=== PATIENT | male | born 1995 | race Caucasian/White ===

== ENCOUNTER 2017-09-24 16:24 | Emergency (ER) | payer OTHER ==
--- NOTE | 2017-09-24 17:02 | ULT ---
EXAM: SOFT TISSUE ULTRASOUND: HISTORY: Pulsating mass in the right wrist. The patient has a recent lab draw from that wrist. Evaluate for aneurysm. COMPARISON: None. TECHNIQUE: Yanez scale, color flow, Doppler imaging, with spectral waveform analysis was performed of the right w rist. FINDINGS: There is a well-circumscribed hypoechoic mass with vascular flow measuring 1.2 x 1.0 x 1.3 cm. A pse udoaneurysm is favored. IMPRESSION: Pseudoaneurysm, corresponding to pulsating mass in the right wrist. POS: [facility]
[2017-09-24 19:17] LABS: #Basophils 0.1 thou/uL (0.0-0.2); #Eosinphils 0.4 thou/uL (0.0-0.7); #Lymphocytes 1.9 thou/uL (1.20-3.40); #Monocytes 0.8 thou/uL (0.11-0.59); #Neutrophils 7.2 thou/uL (1.40-6.50); %Basophils 1.4 % (0.0-1.0); %Eosinophils 4.3 % (0.0-10.0); %Monocytes 7.9 % (0.0-10.0); %Neutrophils 68.4 % (42.0-75.0); Hemoglobin 11.4 g/dL (14.0-18.0); Mean Corpuscular HGB CONC 34.1 g/dL (32.0-36.0); Mean Corpuscular Hemoglobin 30.5 pg (27.0-31.0); Mean Corpuscular Volume 89.5 fl (80.0-94.0); Mean Platelet Volume 10.6 fL (7.4-10.4); Platelet Count 426 thou/uL (130-400); RBC Distribution Width 15.3 % (11.5-14.5); Red Blood Cell (RBC) Count 3.74 mill/uL (4.70-6.10); White Blood Cell (WBC) Count 10.5 thou/uL (4.8-10.8)
[2017-09-24 19:21] LABS: PTT 39.7 SEC (22.9-36.1); Prothrombin Time 13.3 SEC (12.0-14.7)
[2017-09-24 19:28] LABS: Anion Gap 13 mmol/L (10-20); BUN (Urea Nitrogen) 10 mg/dL (8.9-20.6); Calc. Creatinine Clearance 0 mL/min (70-130); Calcium 9.6 mg/dL (7.8-10.44); Carbon Dioxide 24 mmol/L (22-29); Chloride 93 mmol/L (98-107); Estimated GFR-MDRD Greater than 90; Glucose 78 mg/dL (70-105); Potassium 3.4 mmol/L (3.5-5.1); Sodium 127 mmol/L (136-145)
--- NOTE | 2017-09-25 05:53 | CON ---
DATE OF CONSULTATION: 09/24/2017 HISTORY OF PRESENT ILLNESS: This is a 22-year-old gentleman with primary sclerosing cholangitis, who has just recently completed a course of 6 weeks of IV antibiotics. He is on the transplant list at the present time. 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 PAST MEDICAL HISTORY: Also includes ulcerative colitis. PAST SURGICAL HISTORY: Includes appendectomy at age 5 and partial colectomy at age 7. He has had so me liver biopsies in the past. MEDICATIONS: At the present time include, medication for his primary sclerosing cholangitis, I do no t have the name of that medication. ALLERGIES: He has no known allergies. SOCIAL HISTORY: He is a mechanical engineering student karmen at and accompanied by his mother mukul ivey lives in [place]. PHYSICAL EXAMINATION: GENERAL: He is an alert, cooperative gentleman, in no distress. Facies has slight jaundice. NECK: Without adenopathy or bruits. LUNGS: Clear to auscultation. CARDIAC: Regular rate and rhythm, no murmurs. ABDOMEN: Firm, nontender, palpable right upper quadrant liver. EXTREMITIES: Palpable femoral and pedal pulses bilaterally. 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 He has excellent Kei's with good collateral fi ll with compression of his radial artery, both in his index finger with plethysmography and in his pa lmar arch with Doppler. PLAN: Plan at this time is for exploration tomorrow under local anesthetic with either ligation of h is radial artery at the site of injury or repair if the entry site is not too large. I discussed thi s with the patient and his mother and informed consent has been obtained.
== END 2017-09-24 18:56 | disposition home or self-care (01) ==
LOC: ERS 16:24
DX: I72.1 Aneurysm of artery of upper extremity (principal); Z79.899 Other long term (current) drug therapy
CPT/HCPCS: 76999; 80048; 85025; 85610; 85730; 86850; 86900; 86901

== ENCOUNTER 2017-09-25 11:10 | Day surgery (SDC) | payer OTHER ==
[2017-09-25] MEDS ORDERED: Propofol 200 MG/20 ML VIAL ONE (12:08)
[2017-09-25] MEDS ORDERED: Lidocaine 1% PF 5 ML VIAL ONE (12:08)
[2017-09-25] MEDS ORDERED: Ondansetron HCl/PF 4 MG/2 ML Vial ONE (12:08)
[2017-09-25] MEDS ORDERED: Dexamethasone 20 MG/5 ML VIAL ONE (12:08)
[2017-09-25] MEDS ORDERED: Fentanyl 100 MCG/2 ML VIAL ONE (12:18)
[2017-09-25] MEDS ORDERED: Midazolam HCl 2 mg/2 ml Vial ONE (12:18)
[2017-09-25] MEDS ORDERED: Lidocaine 1% w/Epinephrine 1:200K 30 ML VIAL ONE (12:44)
--- NOTE | 2017-09-26 11:13 | OP ---
PREOPERATIVE DIAGNOSIS: Right radial artery pseudoaneurysm. PROCEDURE: Repair right radial artery pseudoaneurysm. SURGEON: Dr. Sylvester Guthrie. ANESTHESIA: General with 1% lidocaine. PROCEDURE: After adequate anesthesia had been obtained, the right lower arm was prepped and draped. A 1% lidocaine was used to inflate and injected around the pseudoaneurysm. Incision was made over t he pseudoaneurysm slightly proximally and less so distally. Dissection was carried out proximally an d after control of the radial artery with a small bulldog clamp, the aneurysm was opened with zack armond of the distal radial artery manually. The orifice of the pseudoaneurysm was then oversewn with 6-0 Prolene suture. Following this, clamp and pressure was released and there was no further bleedin g. The pseudoaneurysm sac was partially excised, and the wound was then closed in layers. The patie nt tolerated the procedure well with minimal blood loss.
== END 2017-09-25 14:55 | disposition home or self-care (01) ==
LOC: SDC 11:10
PROVIDERS: ATTEND Thoracic Surgery (Cardiothoracic Vascular Surgery)
PROC: 03QB0ZZ Repair Right Radial Artery, Open Approach (ICD-10-PCS; principal; 2017-09-25)
DX: I72.1 Aneurysm of artery of upper extremity (principal); K83.0 Cholangitis; K51.90 Ulcerative colitis, unspecified, without complications; Z76.82 Awaiting organ transplant status; Z90.49 Acquired absence of other specified parts of digestive tract; Z98.890 Other specified postprocedural states
CPT/HCPCS: 36416; J1100; J2001; J2250; J2405; J2704; J3010

== ENCOUNTER 2017-09-29 15:00 | Emergency (ER) | payer OTHER ==
[2017-09-29 15:45] LABS: #Basophils 0.1 thou/uL (0.0-0.2); #Eosinphils 0.2 thou/uL (0.0-0.7); #Lymphocytes 0.8 thou/uL (1.20-3.40); #Monocytes 0.8 thou/uL (0.11-0.59); #Neutrophils 7.2 thou/uL (1.40-6.50); %Basophils 0.7 % (0.0-1.0); %Eosinophils 2.2 % (0.0-10.0); %Lymphocytes 8.8 % (21.0-51.0); %Monocytes 9.1 % (0.0-10.0); %Neutrophils 79.2 % (42.0-75.0); Hemoglobin 11.3 g/dL (14.0-18.0); Mean Corpuscular HGB CONC 34.6 g/dL (32.0-36.0); Mean Corpuscular Hemoglobin 30.9 pg (27.0-31.0); Mean Corpuscular Volume 89.4 fl (80.0-94.0); Mean Platelet Volume 9.6 fL (7.4-10.4); Platelet Count 331 thou/uL (130-400); Red Blood Cell (RBC) Count 3.67 mill/uL (4.70-6.10); White Blood Cell (WBC) Count 9.1 thou/uL (4.8-10.8)
[2017-09-29 16:10] LABS: ALT (SGPT) 160 U/L (8-55); AST (SGOT) 138 U/L (5-34); Albumin 3.2 g/dL (3.5-5.0); Alkaline Phosphatase 1045 U/L (40-150); Anion Gap 12 mmol/L (10-20); BUN (Urea Nitrogen) 9 mg/dL (8.9-20.6); Bilirubin, Total 11.1 mg/dL (0.2-1.2); Calc. Creatinine Clearance 0 mL/min (70-130); Calcium 9.2 mg/dL (7.8-10.44); Carbon Dioxide 23 mmol/L (22-29); Chloride 94 mmol/L (98-107); Estimated GFR-MDRD Greater than 90; Globulin 3.2 g/dL (2.4-3.5); Glucose 188 mg/dL (70-105); Lipase Less than 4 U/L (8-78); Potassium 3.2 mmol/L (3.5-5.1); Protein, Total 6.4 g/dL (6.0-8.3); Sodium 126 mmol/L (136-145)
--- NOTE | 2017-09-29 16:27 | RAD ---
PORTABLE CHEST ONE VIEW: Date: 09-29-17 Time: 4:19 p.m. History: Cough. FINDINGS: The heart size is normal. The lungs are well expanded without confluent areas of consolidation, pneum othoraces, or pleural effusions. IMPRESSION: No radiographic evidence of acute cardiopulmonary process. POS: [facility]
[2017-09-29 16:51] LABS: Bilirubin Large (Negative); Blood, Urine Negative (Negative); Clarity CLOUDY (Clear); Glucose, Urine (Dipstick) 100 mg/dL (Negative); Leukocyte Small (Negative); Nitrite Negative (Negative); Protein, Urine (Dipstick) Negative (Neg-Trace); Specific Gravity, Urine 1.027 (1.002-1.036)
[2017-09-29 16:54] LABS: Bacteria/HPF None Seen HPF (None Seen); Hyaline Casts/LPF 0-3 HYALINE CAST LPF (0-3 Hyaline); Pathc Cast-AUWi Flag 0.27 (0-2.49); Squamous Epithelial None Seen HPF (0-3)
[2017-09-29 17:05] LABS: WBC/HPF 0-3 HPF (0-3)
[2017-09-29] MEDS ORDERED: Potassium Chloride 20 MEQ TAB ONE (17:19)
== END 2017-09-29 18:50 | disposition home or self-care (01) ==
LOC: ERS 15:00
DX: J11.1 Influenza due to unidentified influenza virus with other respiratory manifestations (principal); Z79.899 Other long term (current) drug therapy
CPT/HCPCS: 36415; 71045; 80053; 81003; 81015; 83690; 85025; 87804; 96360

== ENCOUNTER 2018-04-30 20:42 | Inpatient (IN) | payer OTHER ==
--- NOTE | 2018-04-30 21:29 | RAD ---
SINGLE VIEW OF THE CHEST: 04/29/18 COMPARISON: 09/29/17 HISTORY: Fever and cough. FINDINGS: Single view of the chest shows a normal sized cardiomediastinal silhouette. There is no evidence of c onsolidation, mass, or pleural effusion. The bones are unremarkable. IMPRESSION: No evidence of acute cardiopulmonary disease. POS: [facility]
[2018-04-30] MEDS ORDERED: Cefepime 2 GM in Sodium Chloride 0.9% 100 ML IVPB SCH (21:30)
[2018-04-30 21:32] LABS: #Basophils 0.1 thou/uL (0.0-0.2); #Eosinphils 0.1 thou/uL (0.0-0.7); #Monocytes 1.1 thou/uL (0.11-0.59); #Neutrophils 16.2 thou/uL (1.40-6.50); %Basophils 0.5 % (0.0-1.0); %Eosinophils 0.7 % (0.0-10.0); %Lymphocytes 10.4 % (21.0-51.0); %Monocytes 5.6 % (0.0-10.0); %Neutrophils 82.7 % (42.0-75.0); Mean Corpuscular HGB CONC 34.3 g/dL (32.0-36.0); Mean Corpuscular Hemoglobin 30.9 pg (27.0-31.0); Platelet Count 348 thou/uL (130-400); RBC Distribution Width 17.4 % (11.5-14.5); Red Blood Cell (RBC) Count 3.89 mill/uL (4.70-6.10); White Blood Cell (WBC) Count 19.5 thou/uL (4.8-10.8)
[2018-04-30 21:43] LABS: ALT (SGPT) 104 U/L (8-55); AST (SGOT) 124 U/L (5-34); Albumin 3.7 g/dL (3.5-5.0); Alkaline Phosphatase 1040 U/L (40-150); Anion Gap 14 mmol/L (10-20); BUN (Urea Nitrogen) 9 mg/dL (8.9-20.6); Bilirubin, Total 10.7 mg/dL (0.2-1.2); Calc. Creatinine Clearance 0 mL/min (70-130); Calcium 9.6 mg/dL (7.8-10.44); Carbon Dioxide 24 mmol/L (22-29); Chloride 95 mmol/L (98-107); Estimated GFR-MDRD Greater than 90; Globulin 4.3 g/dL (2.4-3.5); Glucose 93 mg/dL (70-105); Lipase Less than 4 U/L (8-78); Potassium 3.4 mmol/L (3.5-5.1); Sodium 130 mmol/L (136-145)
[2018-04-30] MEDS ORDERED: Ibuprofen 800 MG TAB ONE (23:08)
[2018-04-30 23:57] VITALS: BMI 24.0
[2018-05-01] MEDS ORDERED: Acetaminophen 325 MG TAB PO PRN (00:07)
[2018-05-01] MEDS ORDERED: Ondansetron HCl/PF 4 MG/2 ML Vial IVP PRN (00:07)
[2018-05-01] MEDS: Sodium Chloride 0.9% 1,000 ML IV SCH ×2 (00:14→08:02)
[2018-05-01 04:29] LABS: #Basophils 0.1 thou/uL (0.0-0.2); #Eosinphils 0.2 thou/uL (0.0-0.7); #Lymphocytes 2.6 thou/uL (1.20-3.40); #Monocytes 1.1 thou/uL (0.11-0.59); #Neutrophils 14.8 thou/uL (1.40-6.50); %Basophils 0.5 % (0.0-1.0); %Eosinophils 1.1 % (0.0-10.0); %Lymphocytes 13.7 % (21.0-51.0); %Monocytes 5.7 % (0.0-10.0); Anion Gap 13 mmol/L (10-20); BUN (Urea Nitrogen) 7 mg/dL (8.9-20.6); Calc. Creatinine Clearance 187 mL/min (70-130); Calcium 9.1 mg/dL (7.8-10.44); Carbon Dioxide 24 mmol/L (22-29); Chloride 102 mmol/L (98-107); Estimated GFR-MDRD Greater than 90; Glucose 103 mg/dL (70-105); Hemoglobin 11.9 g/dL (14.0-18.0); Mean Corpuscular HGB CONC 33.8 g/dL (32.0-36.0); Mean Corpuscular Hemoglobin 30.8 pg (27.0-31.0); Mean Corpuscular Volume 91.1 fL (78.0-98.0); Mean Platelet Volume 11.5 fL (7.4-10.4); Platelet Count 332 thou/uL (130-400); Potassium 3.2 mmol/L (3.5-5.1); RBC Distribution Width 17.5 % (11.5-14.5); Red Blood Cell (RBC) Count 3.85 mill/uL (4.70-6.10); Sodium 136 mmol/L (136-145); White Blood Cell (WBC) Count 18.8 thou/uL (4.8-10.8)
[2018-05-01] MEDS: Piperacillin/Tazobactam 3.375 GM in Sodium Chloride 0.9% 100 ML IVPB SCH ×2 (05:32→15:09)
[2018-05-01] MEDS ORDERED: VANCOMYCIN IVPB PRN (07:18)
[2018-05-01] MEDS ORDERED: [UNRECOGNIZED DRUG - OTHER] IVPB PRN (07:18)
[2018-05-01] MEDS ORDERED: Vancomycin HCl 1 GM in Premix Bag 1 BAG IVPB SCH (07:30)
[2018-05-01 07:58] LABS: ALT (SGPT) 86 U/L (8-55); AST (SGOT) 97 U/L (5-34); Albumin 3.1 g/dL (3.5-5.0); Alkaline Phosphatase 911 U/L (40-150); Bilirubin, Direct 7.6 mg/dL (0.1-0.3); Bilirubin, Total 10.1 mg/dL (0.2-1.2); Protein, Total 6.8 g/dL (6.0-8.3)
[2018-05-01] MEDS ORDERED: Vancomycin HCl 1.75 GM in Sodium Chloride 0.9% 500 ML IVPB SCH (08:00)
[2018-05-01 08:29] LABS: HBCM Index 0.08 S/CO (0-0.79); HBSAg Index 0.13 S/CO (0-0.99); Hep A IgM AB Non-Reactive (NonReactive); Hep B Surf Ag Non-Reactive S/CO (NonReactive); Hep C IgG Ab Non-Reactive (NonReactive); Hep C Index 0.07 S/CO (0-0.79); Hepatitis B Core IGM Abs Non-Reactive (NonReactive)
[2018-05-01] MEDS ORDERED: Enoxaparin Sodium 40 MG/0.4 ML SYRINGE SC SCH (09:00)
[2018-05-01] MEDS ORDERED: Cefepime 2 GM in Sodium Chloride 0.9% 100 ML IVPB SCH (09:00)
--- NOTE | 2018-05-01 09:17 | HP ---
PRIMARY CARE PHYSICIAN: The patient only follows with for his liver disease. CODE STATUS: FULL CODE. TIME OF EVALUATION: 3:45 p.m. CHIEF COMPLAINT: Fever. HISTORY OF PRESENT ILLNESS: This is a 22-year-old male patient with past medical history of ulcerati ve colitis, cholangitis, partial colon resection, and cirrhosis of the liver, came to the hospital af ter having a fever. For the past 2 days, symptoms have been gradually getting worse, with no relief, no clear triggers, no alleviating factors, associated with sore throat, cough, and myalgias. Sympto ms were reported as moderate to severe. REVIEW OF SYSTEMS: Constitutional: Fever, chills, generalized weakness. Respiratory: Cough. No s putum production, shortness of breath. Cardiovascular: No chest pain, palpitation. Gastrointestina l: No nausea, no vomiting, no diarrhea or abdominal pain. SAS ARCHITECT: No dizziness, headache or feeling l ightheaded. Genitourinary: No burning on urination. Extremities: No leg swelling. All other syst ems were reviewed and negative except for the findings mentioned above. PAST MEDICAL HISTORY: Positive for primary sclerosing cholangitis, ulcerative colitis. PAST SURGICAL HISTORY: Bowel resection, appendectomy. PSYCHIATRIC HISTORY: No previous psychiatric history. No previous history of suicidal or homicidal ideation. SOCIAL HISTORY: The patient lives with friends. No alcohol, no drugs, no smoking history. ALLERGIES: No known drug allergies. REPORTED MEDICATIONS: Ursodiol. PHYSICAL EXAMINATION: VITAL SIGNS: On presentation, blood pressure 153/78 with heart rate 99, respiratory rate was 17, tem perature 99.7, pain 6/10, oxygen saturation was 100% on room air. GENERAL APPEARANCE: The patient is alert, oriented, not in any acute distress. Generalized weakness reported. HEENT: Eyes: Normal conjuctivae. Moist oral mucosa. The patient has plaques in the tonsils in the oropharyngeal area associated with redness in that area. Anicteric. NECK: No JVD. RESPIRATORY: Bilateral air entry. No rales, no wheezing. Symmetric expansion. CARDIOVASCULAR: Normal rate, regular rhythm. No murmurs, no gallop. No edema. ABDOMEN: Soft, normal bowel sounds. MUSCULOSKELETAL: Baseline range of motion and strength. No tenderness. SKIN: Warm and intact. No pallor, no rash, no redness. Peripheral pulses are present. Capillary r efill seems to be intact. NEUROLOGIC: Baseline sensory. No evidence of any new focal weakness. Baseline speech. Cranial ner ves seem to be intact. PSYCHIATRIC: The patient is in good mood. No anxiety, oriented, optimal judgment. IMAGING: Chest x-ray was done and reviewed. The patient has no evidence of any acute cardiopulmonar y disease. LABORATORY DATA: Labs were reviewed. Group A strep was done with a final result of positive. Influ bryant types A and B were done and were negative. The patient had a white count of 19.5 with hemoglobi n 12, MCV 90, platelet count 348. Sodium 130, potassium 3.4, chloride 95, carbon dioxide 24, anion g ap 14, BUN 9, creatinine 0.7, GFR greater than 90. Total bilirubin 10.7, AST 124, ALT 100, alkaline phosphatase . Lipase less than 4. ASSESSMENT AND PLAN: The patient will be placed in the hospital with the following medical problems: 1. Sepsis. The patient has a white count of 19 with fever, possible source is strep infection in th e throat, the patient is an immunosuppressed host given liver cirrhosis, we will treat with appropria te coverage for strep, give hydration, follow cultures and adjust treatment depending on culture resu lt. 2. Cirrhosis of the liver seems to be stable at this point, we will monitor, we will adjust treatmen t as needed. 3. Hyponatremia with sodium 130, this is mild, we will monitor, we will adjust electrolyte replaceme nt as needed. 4. Hypokalemia with potassium 3.4, we will replace electrolytes as needed, this is mild, acute. 5. High liver function tests the patient with underlying chronic liver disease. liver transplant. 6. History of ulcerative colitis. This is chronic, seems to be stable at this point. 7. History of sclerosing cholangitis, chronic. 8. Deep venous thrombosis prophylaxis.
--- NOTE | 2018-05-01 10:23 | ULT ---
RIGHT UPPER QUADRANT ABDOMINAL ULTRASOUND: Date: 05/01/18 COMPARISON: None. HISTORY: Abnormal LFTs. TECHNIQUE: Multiplanar Yanez scale and color Doppler images were obtained in a right upper quadrant abdominal ult rasound. FINDINGS: The liver is normal in echogenicity without focal lesions or intrahepatic ductal dilatation. There ar e shadowing stones in the gallbladder. There are also areas of comet tail artifact along the gallblad katya wall which likely represents cholesterolosis. There is gallbladder wall thickening. The common bi le duct is normal measuring 3.0 mm. The visualized portions of the pancreas are unremarkable. The right kidney is normal in echogenicity without hydronephrosis or calculus and measures 12.1 cm in length. IMPRESSION: 1. Cholelithiasis. 2. Gallbladder cholesterolosis. POS: [facility]
[2018-05-01] MEDS: Potassium Chloride 20 MEQ TAB PO SCH (16:55)
[2018-05-01] MEDS: Ursodiol 300 MG CAP PO SCH (17:48)
--- NOTE | 2018-05-01 19:39 | CON ---
DATE OF CONSULTATION: 05/01/2018 REASON FOR CONSULTATION: Fever, sclerosing cholangitis in the setting of ulcerative colitis. HISTORY OF PRESENT ILLNESS: A 22-year-old who is mostly managed in [place] and has a longstanding hi story of sclerosing cholangitis and ulcerative colitis. The patient has cirrhosis of the liver, has had multiple courses of antimicrobial therapy for management of infectious complications of sclerosin g cholangitis in the past and during those periods, he required PICC line placement. Over the past 2 -3 days, has developed progressively worsening sore throat with fever, some headaches. No visual sym ptoms. No cough or chest pain, no dyspnea, no abdominal pain, no diarrhea, no genitourinary symptoms , no bleeding, no vomiting. PAST MEDICAL HISTORY: Sclerosing cholangitis, ulcerative colitis, liver cirrhosis. He is on a trans plant list. PAST SURGICAL HISTORY: Prior bowel resection, appendectomy. SOCIAL HISTORY: Lives with friends. No alcoholic beverage use, never a smoker. ALLERGIES: None. CURRENT MEDICATIONS: Ursodiol, he had been on Zosyn and vancomycin after this admission. PHYSICAL EXAMINATION: VITAL SIGNS: Temperature max 98.4, blood pressure 130/69, pulse 88, respirations 16, O2 sat 98%. SKIN: The patient has numerous papillary lesions in the skin, probably related to chronic cholestasi s. He has obvious scleral icterus. Some areas of excoriation. Peripheral IV access. No lymphadeno jamie. HEENT: Ocular movements conjugate. Oral cavity shows florid pharyngitis with tonsillar enlargement and exudate with quite prominent erythema in the posterior oropharynx with quite symmetric distributi on. Numerous teeth in place, some gingivitis. NECK: Supple, no jugular venous distention. LUNGS: With symmetric clear breath sounds. HEART: S1, S2, regular rate without murmurs. No S3 or S4. ABDOMEN: Somewhat distended. There is obvious hepatomegaly with no tenderness. No bladder distenti on. Bowel sounds are present, but normal. No rebound tenderness. EXTREMITIES: Trace edema lower extremities. No joint inflammatory activity. Pulses 1+ in dorsalis pedis. Plantar responses are flexure. NEUROLOGIC: His cognitive function appears to be intact. LABORATORY DATA: White cell count is 19.5 and now 18.8, hemoglobin 11.9, platelets 332, 78% neutroph ils. Sodium 136, creatinine 0.73, bilirubin 10.7, AST 124, ALT 104. Alkaline phosphatase 911, album in 3.7. Two sets of blood cultures thus far no growth and group A Streptococcus screen was positive. IMAGING STUDIES: There is an abdominal ultrasound with cholelithiasis and gallbladder cholesterolosi s. Chest x-ray with no acute cardiopulmonary disease. ASSESSMENT: Primary sclerosing cholangitis with ulcerative colitis and liver cirrhosis with acute ph aryngitis secondary to group A streptococcus is the most likely scenario. Recommend transition to or al Pen-Vee K 500 mg twice daily. Treat for 10 days. Consider discharge planning tomorrow if he cont inues to do well. Blood cultures will have to be monitored, but I think clinical findings are unlike ly to represent acute infectious cholangitis, but we will continue monitoring blood cultures and his clinical course.
[2018-05-01] MEDS: Penicillin V Potassium 250 MG TAB PO SCH (20:38)
[2018-05-01] MEDS ORDERED: Piperacillin/Tazobactam 3.375 GM in Sodium Chloride 0.9% 100 ML IVPB SCH (21:00)
--- NOTE | 2018-05-01 21:02 | PDOC.PN ---
- Subjective Encounter Start Date: 05/01/18 Encounter Start Time: 15:00 Patient seen and examined for Sepsis. Feeling somewhat better. Sore throat +. No new complaints. No overnight events - Objective Resuscitation Status: Resuscitation Status FULL:Full Resuscitation MAR Reviewed: Yes Vital Signs & Weight: Vital Signs (12 hours) Temp Pulse Resp BP Pulse Ox 05/01/18 20:00 98.4 F 96 20 130/73 99 05/01/18 16:42 98.3 F 88 16 131/69 98 05/01/18 11:20 98.4 F 85 16 126/69 99 Weight Weight 181 lb 12.8 oz I&O: 04/30/18 05/01/18 05/02/18 06:59 06:59 06:59 Intake Total 948 Balance 948 Result Diagrams: 05/02/18 03:54 05/02/18 03:54 Phys Exam - Physical Examination Constitutional: NAD HEENT: sclera anicteric Tonsillar exudate + Respiratory: no wheezing, no rhonchi Cardiovascular: RRR, no rub Gastrointestinal: soft, non-tender, positive bowel sounds Musculoskeletal: no edema Neurological: moves all 4 limbs Dx/Plan - Plan DVT proph w/SCDs IMPRESSION: 1. Sepsis prob due to Strep Pharyngitis with Rhinovirus infection. Cholangitis unlikely - USG neg - No GI symptoms Change Zosyn to Pen VK - Case d/w ID and GI 2. Hypokalemia Will replace, Check Magnessium in AM 3. Primary Sclerosing Cholangitis/UC with chronically elevated LFTs LFTs at baseline, On Transplant list, Resume Ursodiol 4. Hyponatremia Improving with IVF Laboratory Tests 04/30/18 04/30/18 05/01/18 21:10 21:10 03:25 WBC 19.5 H Potassium 3.4 L 3.2 L Total Bilirubin 10.7 H AST 124 H ALT 104 H Alkaline Phosphatase 1040 H 05/01/18 03:25 WBC 18.8 H Potassium Total Bilirubin AST ALT Alkaline Phosphatase Review of Systems - Review of Systems Cardiovascular: negative: chest pain, palpitations, orthopnea, paroxysmal nocturnal dyspnea, edema, light headedness, other Gastrointestinal: negative: Nausea, Vomiting, Abdominal Pain, Diarrhea, Constipation, Melena, Hematochezia, Other - Medications/Allergies Allergies/Adverse Reactions: Allergies Allergy/AdvReac Type Severity Reaction Status Date / Time No Known Drug Allergies Allergy Verified 04/30/18 23:59 Medications: Current Medications Miscellaneous Medication (Pharmacy To Dose) 1 each IVPB DAILYPRN PRN PRN Reason: LABS Ondansetron HCl (Zofran) 4 mg IVP Q6H PRN PRN Reason: Nausea/Vomiting Penicillin V Potassium (Penicillin V Potassium) 500 mg PO BID [facility] Last Admin: 05/01/18 20:38 Dose: 500 mg Pneumococcal Polyvalent Vaccine (Pneumovax 23) 0.5 ml IM .ONCE ONE Stop: 05/02/18 09:01 Potassium Chloride (K-Dur) 20 meq PO BID[facility] Stop: 05/02/18 08:01 Last Admin: 05/01/18 16:55 Dose: 20 meq Sodium Chloride (Flush - Normal Saline) 10 ml IVF Q12HR [facility] Last Admin: 05/01/18 20:39 Dose: Not Given Sodium Chloride (Flush - Normal Saline) 10 ml IVF PRN PRN PRN Reason: Saline Flush Ursodiol (Actigal) 300 mg PO BID-[facility] Last Admin: 05/01/18 17:48 Dose: 300 mg
[2018-05-02 04:53] LABS: #Basophils 0.1 thou/uL (0.0-0.2); #Eosinphils 0.5 thou/uL (0.0-0.7); #Monocytes 0.8 thou/uL (0.11-0.59); #Neutrophils 11.4 thou/uL (1.40-6.50); %Basophils 0.4 % (0.0-1.0); %Eosinophils 3.1 % (0.0-10.0); %Lymphocytes 13.3 % (21.0-51.0); %Monocytes 5.2 % (0.0-10.0); %Neutrophils 78.1 % (42.0-75.0); Hemoglobin 11.1 g/dL (14.0-18.0); Mean Corpuscular Hemoglobin 30.2 pg (27.0-31.0); Mean Corpuscular Volume 91.6 fL (78.0-98.0); Mean Platelet Volume 11.4 fL (7.4-10.4); Platelet Count 296 thou/uL (130-400); RBC Distribution Width 16.8 % (11.5-14.5); Red Blood Cell (RBC) Count 3.66 mill/uL (4.70-6.10); White Blood Cell (WBC) Count 14.7 thou/uL (4.8-10.8)
[2018-05-02 05:07] LABS: Magnesium 1.5 mg/dL (1.6-2.6); Potassium 3.1 mmol/L (3.5-5.1)
[2018-05-02] MEDS ORDERED: Potassium Chloride 20 MEQ TAB PO SCH ×2 (09:00→12:00)
[2018-05-02] MEDS ORDERED: Magnesium 2 GM/NS 0.9% 100 ML 2 GM in Premix Bag 1 BAG IVPB SCH (09:00)
[2018-05-02] MEDS ORDERED: Magnesium Sulfate 2 GM in Sodium Chloride 0.9% 100 ML IVPB SCH (09:00)
[2018-05-02] MEDS: Potassium Chloride 20 MEQ TAB PO SCH ×2 (09:10→09:21)
[2018-05-02] MEDS: Penicillin V Potassium 250 MG TAB PO SCH (09:10)
[2018-05-02] MEDS: Ursodiol 300 MG CAP PO SCH (09:10)
[2018-05-02 11:10] VITALS: BP 124/64; TEMP 97.8
--- NOTE | 2018-05-02 19:09 | DIS ---
DATE OF DISCHARGE: 05/02/2018 DISCHARGE DISPOSITION: Home. FOLLOWUP: Follow up with primary care physician at [facility] in 1 week. Follow up with Dr. Rafael SALAZAR in one week. ALLERGIES: No known drug allergies. DISCHARGE MEDICATIONS: Pen-Vee VK 500 mg twice a day for 10 days, potassium chloride 10 mEq twice a day for the next 5 days, resume ursodiol 300 mg twice a day. The patient was seen and examined on the day of discharge, denies any new complaints, no chest pain, shortness of breath, palpitations. INPATIENT CONSULTANTS: Infectious Disease, Dr. Aragon. BRIEF HOSPITAL COURSE: Patient is a 22-year-old male with primary sclerosing cholangitis with ulcera tive colitis who presented to the hospital with a fever and sore throat. Please refer to the history and physical for further details. The patient was admitted to the hospital with a diagnosis of sepsis. WBC on admission was 19.5 and a t discharge was 14.7. His LFTs were at baseline with total bilirubin 10.7, AST 124, ALT 104 with alk steve phosphatase 1040. Acute hepatitis screen was negative. Cholangitis was ruled out with abdomin al ultrasound. The patient did not have GI symptoms. He was found to have streptococcal pharyngitis with rhinovirus infection. Blood cultures were negative at 48 hours. He was advised to follow up o n the final blood cultures. Influenza testing was negative as well. The patient was evaluated by Dr Saurabh Aragon. Parenteral antibiotics were changed to Pen-Vee K. Patient has remained afebrile with a Pen -Vee K overnight. He also had electrolyte imbalance that has been replaced. FINAL DIAGNOSES: 1. Sepsis due to streptococcal pharyngitis with rhinovirus infection. 2. Hypokalemia. 3. Hypomagnesemia. 4. Hyponatremia, improved. His sodium on admission was 130, at discharge was 136. 5. Cholelithiasis. 6. Primary sclerosing cholangitis with ulcerative colitis, currently on transplant list. 7. Chronically elevated liver function tests. 8. Chronic anemia of unclear etiology. Plan of care was discussed with the patient in detail. He stated understanding.
== END 2018-05-02 14:32 | disposition home or self-care (01) | DRG 872 ==
LOC: ERS 20:42 → T4-A 22:40 → OBSVTOIN 05-01 07:17
PROVIDERS: ADMIT Hospitalist; ATTEND Hospitalist
DX: A40.9 Streptococcal sepsis, unspecified (principal); E87.1 Hypo-osmolality and hyponatremia; K83.0 Cholangitis; K51.90 Ulcerative colitis, unspecified, without complications; K74.60 Unspecified cirrhosis of liver; E87.6 Hypokalemia; E83.42 Hypomagnesemia; K80.20 Calculus of gallbladder without cholecystitis without obstruction; D64.9 Anemia, unspecified; J02.0 Streptococcal pharyngitis; B95.0 Streptococcus, group A, as the cause of diseases classified elsewhere
CPT/HCPCS: 36415; 71045; 76705; 80048; 80053; 80074; 80076; 83605; 83690; 83735; 84132; 85025; 87040; 87430; 87633; 87798; 87804; 96361; 96365; A4216; J0692; J1650; J2543; J3370; J3475; J7050

== ENCOUNTER 2018-06-25 21:58 | Inpatient (IN) | payer OTHER ==
[2018-06-25 23:15] LABS: #Basophils 0.1 thou/uL (0.0-0.2); #Eosinphils 0.1 thou/uL (0.0-0.7); #Lymphocytes 1.6 thou/uL (1.20-3.40); #Neutrophils 9.8 thou/uL (1.40-6.50); %Basophils 1.2 % (0.0-1.0); %Eosinophils 1.1 % (0.0-10.0); %Lymphocytes 12.4 % (21.0-51.0); %Monocytes 8.2 % (0.0-10.0); %Neutrophils 77.1 % (42.0-75.0); Hemoglobin 11.4 g/dL (14.0-18.0); Mean Corpuscular HGB CONC 32.3 g/dL (32.0-36.0); Mean Corpuscular Hemoglobin 29.6 pg (27.0-31.0); Mean Corpuscular Volume 91.6 fL (78.0-98.0); Mean Platelet Volume 10.5 fL (7.4-10.4); Platelet Count 333 thou/uL (130-400); RBC Distribution Width 18.1 % (11.5-14.5); Red Blood Cell (RBC) Count 3.84 mill/uL (4.70-6.10); White Blood Cell (WBC) Count 12.7 thou/uL (4.8-10.8)
[2018-06-25] MEDS ORDERED: Ibuprofen 800 MG TAB ONE (23:16)
[2018-06-25 23:22] LABS: ALT (SGPT) 125 U/L (8-55); AST (SGOT) 150 U/L (5-34); Albumin 3.3 g/dL (3.5-5.0); Alkaline Phosphatase 1289 U/L (40-150); Anion Gap 13 mmol/L (10-20); BUN (Urea Nitrogen) 8 mg/dL (8.9-20.6); Bilirubin, Total 8.7 mg/dL (0.2-1.2); Calc. Creatinine Clearance 0 mL/min (70-130); Calcium 9.1 mg/dL (7.8-10.44); Carbon Dioxide 22 mmol/L (22-29); Chloride 98 mmol/L (98-107); Estimated GFR-MDRD Greater than 90; Globulin 4.5 g/dL (2.4-3.5); Glucose 97 mg/dL (70-105); Lipase Less than 4 U/L (8-78); Potassium 3.5 mmol/L (3.5-5.1); Protein, Total 7.8 g/dL (6.0-8.3); Sodium 129 mmol/L (136-145)
--- NOTE | 2018-06-25 23:27 | RAD ---
SINGLE VIEW OF THE CHEST: 06/25/18 INDICATION: Cough. COMPARISON: Prior exam dated 04/30/18. IMPRESSION: No acute cardiopulmonary abnormality. The examination is not appreciably changed from the comparison. POS: [facility]
[2018-06-25 23:55] LABS: Lactic Acid 1.2 mmol/L (0.5-2.2)
[2018-06-25] MEDS ORDERED: Piperacillin/Tazobactam 4.5 GM VIAL ONE (23:58)
[2018-06-26 00:01] LABS: PTT 37.5 SEC (22.9-36.1); Prothrombin Time 12.8 SEC (12.0-14.7)
[2018-06-26 00:53] LABS: Bilirubin Large (Negative); Blood, Urine Negative (Negative); Clarity CLEAR (Clear); Glucose, Urine (Dipstick) Negative (Negative); Leukocyte Negative (Negative); Nitrite Negative (Negative); Protein, Urine (Dipstick) Negative (Neg-Trace); Specific Gravity, Urine 1.017 (1.002-1.036)
[2018-06-26] MEDS ORDERED: Sodium Chloride 0.9% 1,000 ML IV SCH (02:15)
[2018-06-26] MEDS ORDERED: Ondansetron PF 4 MG/2 ML Vial IVP PRN ×2 (02:16→06:48)
[2018-06-26] MEDS ORDERED: Acetaminophen 325 MG TAB PO PRN (02:16)
[2018-06-26] MEDS ORDERED: Ondansetron ODT 4 MG TAB SL PRN (02:16)
[2018-06-26 02:29] VITALS: BMI 23.3
[2018-06-26] MEDS ORDERED: Senokot S 8.6-50 MG TAB PO PRN (06:48)
[2018-06-26] MEDS ORDERED: Calcium Carbonate 500 MG ChewTAB PO PRN (06:48)
[2018-06-26] MEDS ORDERED: Ondansetron ODT 4 MG TAB PO PRN (06:48)
[2018-06-26] MEDS: Sodium Chloride 0.9% 1,000 ML IV SCH ×3 (07:33→20:41)
[2018-06-26] MEDS ORDERED: Meropenem 1 GM in Sodium Chloride 0.9% 100 ML IVPB SCH (08:00)
[2018-06-26] MEDS ORDERED: Piperacillin/Tazobactam 3.375 GM in Sodium Chloride 0.9% 100 ML IVPB SCH (08:00)
[2018-06-26] MEDS: MEROPENEM 1 GM/50 ML 1 GM in Premix Bag 1 BAG IVPB SCH ×2 (08:16→15:46)
[2018-06-26] MEDS: Saccharomyces boulardii 250 MG CAP PO SCH (09:04)
--- NOTE | 2018-06-26 11:36 | HP ---
DATE OF ADMISSION: 06/26/2018 PRIMARY CARE PHYSICIAN: Stefan Mahoney. CHIEF COMPLAINT: Fever. HISTORY OF PRESENT ILLNESS: The patient is a 22-year-old male with primary sclerosing cholangitis wi th ulcerative colitis, currently on transplant list presented to the emergency room with fever that s tarted around 6:00 p.m. yesterday. He also had intermittent chills. He denies any other symptoms ex cept for mild nonproductive cough. No sick contacts reported. No nausea, vomiting, diarrhea, hemate mesis, hematochezia, new skin rash, shortness of breath or wheezing reported. In the emergency room, his initial vital signs showed a temperature of 99.6, respirations 20, pulse r ate of 103 with blood pressure 144/80. WBC count was 12.7 with 77% neutrophils. He received vancomy angel, Zosyn along with IV fluid in the emergency room. PAST MEDICAL HISTORY: 1. Primary sclerosing cholangitis. 2. Ulcerative colitis. 3. Chronically elevated liver function tests. 4. Hospitalization for sepsis secondary to streptococcal pharyngitis with rhinovirus infection in [facility] of this year. 5. Cholelithiasis. 6. Chronic anemia. PAST SURGICAL HISTORY: 1. Bowel resection. 2. Appendectomy. ALLERGIES: No known drug allergies. CURRENT HOME MEDICATIONS: Ursodiol 300 mg twice a day. SOCIAL HISTORY: The patient currently lives at home with his family. Denies any smoking, alcohol or drug use. FAMILY HISTORY: Negative for GI problems. REVIEW OF SYSTEMS: The following complete review of systems was negative, unless otherwise mentioned in the HPI or below: Constitutional: Weight loss or gain, ability to conduct usual activities. Skin: Rash, itching. Eyes: Double vision, pain. ENT/Mouth: Nose bleeding, neck stiffness, pain, tenderness. Cardiovascular: Palpitations, dyspnea on exertion, orthopnea. Respiratory: Shortness of breath, wheezing, cough, hemoptysis, fever or night sweats. Gastrointestinal: Poor appetite, abdominal pain, heartburn, nausea, vomiting, constipation, or diarrhea. Genitourinary: Urgency, frequency, dysuria, nocturia. Musculoskeletal: Pain, swelling. Neurologic/Psychiatric: Anxiety, depression. Allergy/Immunologic: Skin rash, bleeding tendency. PHYSICAL EXAMINATION: VITAL SIGNS: As discussed above. GENERAL: A 22-year-old male in no apparent distress. HEENT: Atraumatic, normocephalic. Sclerae are anicteric. Moist mucous membrane, no oral lesion. T here is minimal erythema over the uvula and pharynx noted. NECK: Supple, no JVD, no carotid bruit. LUNGS: Clear to auscultation bilaterally, no wheezing, rales or rhonchi. HEART: S1, S2 present. Regular rate and rhythm. No murmur, rubs, or gallops appreciated. ABDOMEN: Soft, nontender, bowel sounds present. EXTREMITIES: No edema or calf tenderness. NEUROLOGIC: Grossly nonfocal, moves all 4 extremities. PSYCHIATRIC: Alert, awake, oriented x3. SKIN: Chronic skin changes without any new skin findings. NEUROLOGIC: Grossly nonfocal, moves all 4 extremities. PSYCHIATRIC: Alert, awake, oriented x3. LABORATORY FINDINGS: WBC 12.7 with hemoglobin 11.4, hematocrit 35.2, platelet 333. INR 1.0. Chemis tries showed sodium 129, potassium 3.5, chloride 98, bicarbonate 22, BUN 8, creatinine 0.71. Total bilirubin 8.7 with AST 150. ALT 125, alkaline phosphatase 1289. Ammonia was 33. Urinalysis w as negative for WBC, bacteria. Influenza testing was negative. Chest x-ray by my review was negativ e for infiltrate. IMPRESSION: 1. Sepsis due to unclear etiology. 2. Primary sclerosing cholangitis with liver cirrhosis.. 3. Ulcerative colitis. 4. Chronically elevated liver function tests. 5. Chronic anemia. 6. Hyponatremia. 7. Mild protein calorie malnutrition. PLAN: The patient will be monitored on the medical floor. GI has been consulted to rule out primary sclerosing cholangitis. We will continue empiric antibiotics and IV fluids. We will resume Ursodio l. We will rule out strep throat as well as get a respiratory viral panel. Plan of care was discussed with the patient in detail. He stated understanding.
[2018-06-26] MEDS: Ursodiol 300 MG CAP PO SCH (20:40)
[2018-06-26] MEDS: Ibuprofen 200 MG TAB PO PRN (20:53)
[2018-06-27] MEDS: MEROPENEM 1 GM/50 ML 1 GM in Premix Bag 1 BAG IVPB SCH ×4 (00:19→23:40)
--- NOTE | 2018-06-27 01:28 | CON ---
DATE OF CONSULTATION: 06/26/2018 GASTROENTEROLOGY CONSULTATION CHIEF COMPLAINT: Fever and chills. HISTORY OF PRESENT ILLNESS: Mr. Bennett is a 22-year-old man with a history of primary sclerosing ch olangitis, who developed fever at home with chills and achiness of his joints yesterday evening and w ith his long history of prior cholangitis, needed to come onto the emergency room and he was admitted for further care. He was started on broad spectrum antibiotics. His white blood cell count was not ed to be elevated. He has had no abdominal pain. No nausea, vomiting, no diarrhea, constipation, or blood in the stool. He has a normal brown stool once a day. He has had some tenderness in the righ t upper quadrant of the abdomen. He has had no further fever today since starting antibiotics. His weight is stable. 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 At age 4, he had perforated appendicitis and underwent surgery for that. At age 7, he had a bowel re section for unclear reasons. Later on, he had recurrent symptoms similar to when he required the bow el resection. He was ultimately diagnosed with eosinophilic gastroenteritis. He was treated with st eroids for 6 months. At age 16, he was found to have an enlarged liver and developed elevated liver tests and jaundice and he ultimately underwent liver biopsy. 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 Based on this, he then underwent colonoscopy and was diagnosed with ulcerative colitis; however, larry ramos has never really had significant symptoms of ulcerative colitis. His last colonoscopy was around a year or so ago. Since then, he did develop an episode of worsening elevated liver tests and infecti on. He underwent ERCP and did not have ballooning or stenting performed. He had a second ERCP, kerri allan of years later. He has been hospitalized three times with primary sclerosing cholangitis. He was given IV antibiotics for a couple of weeks, the first time. He was given IV antibiotics for 6 weeks , the next time. He was admitted to this hospital back in April with Strep pharyngitis, and he w as treated with penicillin for that. He is now one liver transplant list followed by Dr. Yao in [place]. He states that his MELD score typically runs around 23. He was treated with 6-mercaptop urine for few years, but this was stopped a couple of years ago after his liver tests decompensated f urther. PAST MEDICAL HISTORY: Primary sclerosing cholangitis and ulcerative colitis with end-stage liver dis ease, for which he is on the transplant list. PAST SURGICAL HISTORY: Appendectomy and bowel resection as stated above. He has had a liver biopsy and endoscopy and ERCP. FAMILY HISTORY: Negative for liver disease or inflammatory bowel disease or GI malignancy. SOCIAL HISTORY: No alcohol, tobacco, or drugs. ALLERGIES: No known drug allergies. MEDICATIONS AT HOME: He has been on ursodiol 300 mg twice daily at home currently in the hospital, h e is on meropenem and ursodiol. REVIEW OF SYSTEMS: Negative x10 systems reviewed except as stated in the history of present illness. PHYSICAL EXAMINATION: VITAL SIGNS: Temperature 98.7, pulse 102, blood pressure 125/59. GENERAL: He is in no acute distress, alert and oriented x3. HEENT: He has scleral icterus and is jaundiced. He has cholesterol deposits with the skin. NECK: He has no cervical or supraclavicular lymphadenopathy. OROPHARYNX: Clear. LUNGS: Clear to auscultation bilaterally. HEART: Regular rate and rhythm without murmur. ABDOMEN: Soft, nondistended. He has mild tenderness in the right upper quadrant without guarding. EXTREMITIES: No lower extremity edema. NEUROLOGIC: Cranial nerves are grossly intact. LABORATORY DATA AND X-RAY FINDINGS: White blood cell count 12.7, hemoglobin 11.4, platelets 333. IN R 1.0. Creatinine 0.71. Bilirubin 8.7, AST 150, ALT 125, alkaline phosphatase 1289, albumin 3.3, li pase 4. Urinalysis is negative for signs of infection. Blood cultures are pending. IMPRESSION: 1. Primary sclerosing cholangitis, likely with some degree of ascending cholangitis, now presenting with fever and chills. He has elevated white blood cell count as well. No other source for infectio n is identified. I spoke with his transplant agricultural education teacher, Dr. Yao in [place]. Given the cur rent symptoms and status of his liver disease and cholangitis, IV antibiotics are recommended to cont inue. In light of the PSC, he may not absorb antibiotics orally adequately. His blood cultures jesse ined negative, then the recommendation is to give IV meropenem for 2 weeks. If blood cultures come b ack positive, then he will require 4 weeks of IV antibiotics. The antibiotics can also be adjusted a t that point to the sensitivities of the blood culture. 2. End-stage liver disease on the transplant list. 3. Ulcerative colitis. He is not on specific treatment for the ulcerative colitis. His last colono scopy was around a year or year and a half ago. RECOMMENDATIONS: 1. Continue IV meropenem. 2. Place PICC line once the blood cultures are negative for 48 hours. This likely will have to be d one on Friday morning and then he could be discharged to home with home antibiotics. 3. He will need to continue the meropenem for 2 weeks IV and then if the blood cultures come back po sitive, he will need to actually continue IV antibiotics for 4 weeks.
[2018-06-27] MEDS: Sodium Chloride 0.9% 1,000 ML IV SCH ×3 (05:37→17:04)
[2018-06-27 06:09] LABS: #Basophils 0.1 thou/uL (0.0-0.2); #Eosinphils 0.2 thou/uL (0.0-0.7); #Lymphocytes 1.7 thou/uL (1.20-3.40); #Neutrophils 9.7 thou/uL (1.40-6.50); %Basophils 0.5 % (0.0-1.0); %Eosinophils 1.7 % (0.0-10.0); %Lymphocytes 13.4 % (21.0-51.0); %Monocytes 7.8 % (0.0-10.0); %Neutrophils 76.6 % (42.0-75.0); Hemoglobin 11.1 g/dL (14.0-18.0); MDiff Complete? YES; Mean Corpuscular HGB CONC 31.6 g/dL (32.0-36.0); Mean Corpuscular Hemoglobin 29.3 pg (27.0-31.0); Mean Corpuscular Volume 92.7 fL (78.0-98.0); Mean Platelet Volume 10.3 fL (7.4-10.4); Platelet Count 314 thou/uL (130-400); RBC Distribution Width 17.3 % (11.5-14.5); Red Blood Cell (RBC) Count 3.77 mill/uL (4.70-6.10); Target Cells SLIGHT = 2-5 cells (100X) (0-1/hpf); White Blood Cell (WBC) Count 12.6 thou/uL (4.8-10.8)
[2018-06-27 06:12] LABS: ALT (SGPT) 98 U/L (8-55); AST (SGOT) 105 U/L (5-34); Albumin 2.9 g/dL (3.5-5.0); Alkaline Phosphatase 1167 U/L (40-150); Anion Gap 10 mmol/L (10-20); BUN (Urea Nitrogen) 7 mg/dL (8.9-20.6); Bilirubin, Total 8.9 mg/dL (0.2-1.2); Calc. Creatinine Clearance 204 mL/min (70-130); Calcium 8.6 mg/dL (7.8-10.44); Carbon Dioxide 24 mmol/L (22-29); Chloride 101 mmol/L (98-107); Estimated GFR-MDRD Greater than 90; Globulin 4.2 g/dL (2.4-3.5); Glucose 94 mg/dL (70-105); Magnesium 1.6 mg/dL (1.6-2.6); Potassium 3.4 mmol/L (3.5-5.1); Protein, Total 7.1 g/dL (6.0-8.3); Sodium 132 mmol/L (136-145)
[2018-06-27] MEDS: Saccharomyces boulardii 250 MG CAP PO SCH (08:02)
[2018-06-27] MEDS: Ursodiol 300 MG CAP PO SCH ×2 (08:02→19:13)
[2018-06-27] MEDS: Potassium Chloride 20 MEQ TAB PO SCH ×2 (08:02→17:01)
[2018-06-27] MEDS: Ibuprofen 200 MG TAB PO PRN ×2 (10:59→19:13)
--- NOTE | 2018-06-27 11:53 | PRG ---
DATE OF SERVICE: 06/27/2018 SUBJECTIVE: Mr. Bennett feels largely the same. He still has some achiness in his knee joints, but no specific pain or nausea or vomiting. He did have a spike a fever last night. OBJECTIVE: VITAL SIGNS: Temperature last night at 8:00 p.m. was 102.2, temperature again this morning at 11:00 a.m. is 102.7 at 9:00 a.m., temperature is 99.0; pulse 105; blood pressure 122/67. GENERAL: He is in no acute distress, alert and oriented x3. He has scleral icterus and he is jaundi earl. LUNGS: Clear to auscultation bilaterally. HEART: Tachycardic with regular rhythm. S1 and S2. ABDOMEN: Soft, minimal tenderness in the right upper quadrant without guarding. Bowel sounds are pr esent. EXTREMITIES: No lower extremity edema. LABORATORY DATA: White blood cell count 12.6, hemoglobin 11.1, platelets 314, creatinine 0.65. IMPRESSION: Primary sclerosing cholangitis with fever concerning for ascending cholangitis. Blood c ultures are negative so far. He did have a swab which was positive for adenovirus. He has no upper respiratory symptoms. While it is possible the adenovirus could be causing some symptoms given recur rent high fever, I think we need to continue to treat this as a cholangitis. RECOMMENDATIONS: 1. Continue the meropenem. 2. We would plan for PICC line placement on Friday and then 14 days of antibiotics for followup. If he continues to spike fevers, then we will have to consider antibiotic adjustment as well. The bloo d culture so far negative.
--- NOTE | 2018-06-27 14:10 | PDOC.PN ---
- Subjective Encounter Start Date: 06/27/18 Encounter Start Time: 11:00 Patient seen and examined for Sepsis. No new complaints. No overnight events - Objective Resuscitation Status: Resuscitation Status FULL:Full Resuscitation MAR Reviewed: Yes Vital Signs & Weight: Vital Signs (12 hours) Temp Pulse Resp BP Pulse Ox 06/27/18 11:33 102.2 F H 107 H 18 120/60 98 06/27/18 11:00 102.7 F H 06/27/18 08:55 99.0 F 105 H 18 122/67 98 06/27/18 08:03 98.8 F 115 H 20 140/67 100 06/27/18 05:37 98.4 F 94 18 146/76 H 98 Weight Weight 177 lb I&O: 06/26/18 06/27/18 06/28/18 06:59 06:59 06:59 Intake Total 2657 Output Total 1870 Balance 787 Result Diagrams: 06/27/18 05:33 06/27/18 05:33 Phys Exam - Physical Examination Constitutional: NAD Respiratory: no wheezing, no rhonchi Cardiovascular: RRR, no rub Gastrointestinal: soft, non-tender, positive bowel sounds Musculoskeletal: no edema Neurological: moves all 4 limbs Dx/Plan - Plan DVT proph w/SCDs IMPRESSION: 1. Sepsis due to Cholangitis 2. Adenovirus infection 3. Primary sclerosing cholangitis with liver cirrhosis/Ulcerative colitis. 4. Chronically elevated liver function tests. 5. Chronic anemia. 6. Hyponatremia/Hypokalemia/Hypomagnesemia 7. Mild protein calorie malnutrition. PLAN: Cont Meropenem Consult ID due to persistent fever AM labs Cont current meds as below Replace electrolytes Review of Systems - Review of Systems Respiratory: negative: Cough, Dry, Shortness of Breath, Hemoptysis, SOB with Excertion, Pleuritic Pain, Sputum, Wheezing Cardiovascular: negative: chest pain, palpitations, orthopnea, paroxysmal nocturnal dyspnea, edema, light headedness, other - Medications/Allergies Allergies/Adverse Reactions: Allergies Allergy/AdvReac Type Severity Reaction Status Date / Time No Known Drug Allergies Allergy Verified 04/30/18 23:59 Medications: Current Medications Calcium Carbonate (Tums) 1,000 mg PO Q4H PRN PRN Reason: Heartburn or Indigestion Famotidine (Pepcid) 20 mg PO BID RIGOBERTO Meropenem 1 gm/ Device 50 mls @ 100 mls/hr IVPB 0000,0800,1600 [facility] Last Admin: 06/27/18 07:59 Dose: 50 mls Sodium Chloride (Normal Saline 0.9%) 1,000 mls @ 70 mls/hr IV .[id number] [facility] Last Admin: 06/27/18 10:00 Dose: Not Given Magnesium Sulfate 2 gm/ Device 50 mls @ 50 mls/hr IVPB NOW [facility] Stop: 06/27/18 16:15 Ibuprofen (Motrin) 400 mg PO Q6H PRN PRN Reason: Fever > 101 Last Admin: 06/27/18 10:59 Dose: 400 mg Ondansetron HCl (Zofran Odt) 4 mg PO Q6H PRN PRN Reason: Nausea/Vomiting Ondansetron HCl (Zofran) 4 mg IVP Q6H PRN PRN Reason: Nausea/Vomiting Potassium Chloride (K-Dur) 20 meq PO BID-[facility] Stop: 06/27/18 17:01 Last Admin: 06/27/18 08:02 Dose: 20 meq Saccharomyces Boulardii (Florastor) 250 mg PO DAILY [facility] Last Admin: 06/27/18 08:02 Dose: 250 mg Senna/Docusate Sodium (Senokot S) 2 tab PO BID PRN PRN Reason: Constipation Ursodiol (Actigal) 300 mg PO BID [facility] Last Admin: 06/27/18 08:02 Dose: 300 mg
[2018-06-27] MEDS ORDERED: Magnesium 2 GM/50 ML 2 GM in Premix Bag 1 BAG IVPB SCH (14:15)
[2018-06-27] MEDS: Famotidine 20 MG TAB PO SCH (19:13)
[2018-06-27] MEDS ORDERED: Acetaminophen 325 MG TAB PO PRN (21:13)
--- NOTE | 2018-06-27 21:53 | CON ---
DATE OF CONSULTATION: 06/27/2018 REASON FOR CONSULTATION: Fever. HISTORY OF PRESENT ILLNESS: A 22-year-old who has a history of primary biliary cirrhosis associated with ulcerative colitis and has had various complications of sclerosing cholangitis with the requirement of IV antimicrobial therapy. In April, he was admitted with group A strep pharyngitis, which was treated with IV and then oral antimicrobial therapy and at this time, he presents with a fever of new onset pretty much the day before admission. A little bit of cough, a little bit of sore throat. No headaches, no visual symptoms. No back pain, no dyspnea or chest pain. No nausea, vomiting, diarrhea, hematemesis or melena. No genitourinary symptoms. No abdominal pain. A little bit of pain in the right and left knees. PAST MEDICAL HISTORY: Primary sclerosing cholangitis, ulcerative colitis, recent streptococcal pharyngitis. PAST SURGICAL HISTORY: Bowel resection, appendectomy. ALLERGIES: No known drug allergies. MEDICATIONS: Ursodiol and for this admission he has been receiving Tums, Pepcid , Motrin, meropenem, Zofran, Florastor and Actigall. PHYSICAL EXAMINATION: VITAL SIGNS: T-max 102.7 and now 102.4, BP 136/81. SKIN: Examination shows multiple papules along the skin, probably related to dyslipidemia associated with his liver disease. Some areas of hyperpigmentation scattered throughout the upper body and abdomen. No areas of skin breakdown. He has got excoriations in the lower extremities, probably will need to have pruritus associated with the cholestasis. No lymphadenopathy. HEENT: Ocular movements are conjugate. Scleral icterus. Pupils are equal. Oral cavity is somewhat dry. Numerous teeth in place. NECK: Supple. LUNGS: With symmetric clear breath sounds. HEART: S1, S2, regular rate. No S3, S4. ABDOMEN: Soft, not distended or tender. No ascites. No bladder distention. EXTREMITIES: No joint inflammatory activity noted. Pulses 1+ in dorsalis pedis. No edema. He is able to move extremities equally without any limitations. NEUROLOGIC: Cognitive function appears to be intact. LABORATORY DATA: White cell count 12.7 and 20.6, hemoglobin 11, platelets 314, 76% neutrophils. INR 1.0. Sodium 132, creatinine 0.65, bilirubin 8.9, AST 150 , ALT 125, alkaline phosphatase 1289, albumin 3.3, globulin 4.5. Urinalysis was unremarkable. Microbiology; we have a respiratory virus PCR from 2017 with adenovirus detected. IMAGING STUDIES: There is a chest x-ray from 06/25/2018 with no acute cardiopulmonary abnormality noted. Abdominal ultrasound from 05/01/2018 with cholelithiasis and gallbladder cholesterolosis. ASSESSMENT: 1. Primary biliary cirrhosis associated with ulcerative colitis. 2. Fever of recent onset. 3. Some respiratory symptoms. 4. Positive adenovirus in nasopharyngeal secretions. DISCUSSION: Differential diagnosis includes adenoviral infection with respiratory involvement versus an alternate cause of fever associated with the usual complications that one sees with primary biliary cirrhosis or with ulcerative colitis. Continue monitoring cultures and clinical progress, it is likely that the adenovirus infection is the cause of the patient's presentation ; in that case, he should resolve in the next few days. JUVENCIO
[2018-06-28 05:16] LABS: #Basophils 0.2 thou/uL (0.0-0.2); #Eosinphils 0.2 thou/uL (0.0-0.7); #Lymphocytes 1.8 thou/uL (1.20-3.40); #Neutrophils 9.4 thou/uL (1.40-6.50); %Basophils 1.3 % (0.0-1.0); %Eosinophils 1.7 % (0.0-10.0); %Lymphocytes 14.3 % (21.0-51.0); %Neutrophils 74.7 % (42.0-75.0); Hemoglobin 11.1 g/dL (14.0-18.0); Mean Corpuscular HGB CONC 31.6 g/dL (32.0-36.0); Mean Corpuscular Hemoglobin 29.5 pg (27.0-31.0); Mean Corpuscular Volume 93.3 fL (78.0-98.0); Mean Platelet Volume 10.5 fL (7.4-10.4); Platelet Count 326 thou/uL (130-400); Red Blood Cell (RBC) Count 3.77 mill/uL (4.70-6.10); White Blood Cell (WBC) Count 12.6 thou/uL (4.8-10.8)
[2018-06-28 05:23] LABS: ALT (SGPT) 88 U/L (8-55); AST (SGOT) 87 U/L (5-34); Albumin 3.1 g/dL (3.5-5.0); Alkaline Phosphatase 1184 U/L (40-150); Anion Gap 12 mmol/L (10-20); BUN (Urea Nitrogen) 7 mg/dL (8.9-20.6); Bilirubin, Total 8.8 mg/dL (0.2-1.2); Calc. Creatinine Clearance 204 mL/min (70-130); Calcium 8.8 mg/dL (7.8-10.44); Carbon Dioxide 25 mmol/L (22-29); Chloride 101 mmol/L (98-107); Estimated GFR-MDRD Greater than 90; Globulin 4.3 g/dL (2.4-3.5); Glucose 82 mg/dL (70-105); Potassium 3.5 mmol/L (3.5-5.1); Protein, Total 7.4 g/dL (6.0-8.3); Sodium 134 mmol/L (136-145)
[2018-06-28] MEDS: MEROPENEM 1 GM/50 ML 1 GM in Premix Bag 1 BAG IVPB SCH ×2 (08:27→16:07)
[2018-06-28] MEDS: Saccharomyces boulardii 250 MG CAP PO SCH (08:28)
[2018-06-28] MEDS: Famotidine 20 MG TAB PO SCH ×2 (08:28→21:13)
[2018-06-28] MEDS: Ursodiol 300 MG CAP PO SCH ×2 (08:28→21:13)
[2018-06-28] MEDS: Ibuprofen 200 MG TAB PO PRN ×2 (10:19→17:10)
[2018-06-28] MEDS: Sodium Chloride 0.9% 1,000 ML IV SCH (10:20)
--- NOTE | 2018-06-28 17:22 | PRG ---
DATE OF SERVICE: 06/28/2018 SUBJECTIVE: Mr. Bennett has had recurrent fevers. He has developed a cough with some productive spu jose. OBJECTIVE: VITAL SIGNS: Current temperature is 98.4, maximum temperature is 103.1, pulse 116, blood pressure 12 4/69. GENERAL: He is jaundiced, in no acute distress. LUNGS: Clear to auscultation bilaterally. HEART: Tachycardic. S1, S2. ABDOMEN: Soft, nontender, nondistended. Bowel sounds are present. EXTREMITIES: No lower extremity edema. IMPRESSION: 1. Primary sclerosing cholangitis. He has had recurrent fevers. Difficult to tell if this is from the adenovirus versus the cholangitis. Blood cultures have been negative so far. He has developed a cough now, which may indicate that the viral infection is the primary source for his fever. Dr. Pradip krueger has evaluated as well. 2. Ulcerative colitis, which has not been specifically treated over the last couple of years. His l ast colonoscopy was a year or so ago for cancer screening. RECOMMENDATIONS: He will continue the meropenem. He will likely require PICC line placement followe d by a couple of weeks of antibiotics at home. We will continue to follow recommendations with Dr. Louise dai and his manager business operations, Dr. Yao.
[2018-06-28] MEDS: Acetaminophen 325 MG TAB PO PRN (18:38)
--- NOTE | 2018-06-28 22:10 | PDOC.PN ---
- Subjective Encounter Start Date: 06/28/18 Encounter Start Time: 10:30 Patient seen and examined for Sepsis. Productive cough +. No other complaints. No overnight events - Objective Resuscitation Status: Resuscitation Status FULL:Full Resuscitation MAR Reviewed: Yes Vital Signs & Weight: Vital Signs (12 hours) Temp Pulse Resp BP Pulse Ox 06/28/18 20:00 99.7 F H 93 20 130/68 98 06/28/18 12:51 98.4 F 06/28/18 11:40 100.1 F H 06/28/18 10:18 101.7 F H Weight Weight 177 lb I&O: 06/27/18 06/28/18 06/29/18 06:59 06:59 06:59 Intake Total 2657 Output Total 9931 8633 1224 Balance 870 -3674 -8711 Result Diagrams: 06/29/18 04:10 06/29/18 04:10 Phys Exam - Physical Examination Constitutional: NAD Respiratory: no wheezing, no rhonchi Cardiovascular: RRR, no rub Gastrointestinal: soft, non-tender, positive bowel sounds Musculoskeletal: no edema Dx/Plan - Plan DVT proph w/SCDs IMPRESSION: 1. Sepsis due to Cholangitis 2. Adenovirus infection with Grp A Strep in throat culture 3. Primary sclerosing cholangitis with liver cirrhosis/Ulcerative colitis. 4. Chronically elevated liver function tests. 5. Chronic anemia. 6. Hyponatremia/Hypokalemia/Hypomagnesemia 7. Mild protein calorie malnutrition. PLAN: Cont Meropenem ID/GI following AM labs Cont current meds as below Cont Ibuprofen for fever Cont IVF Microbiology 06/26/18 21:42 Venous blood - Right Arm Blood Culture - Preliminary NO GROWTH AT 48 HOURS 06/26/18 21:42 Venous blood - Left Arm Blood Culture - Preliminary NO GROWTH AT 48 HOURS Review of Systems - Review of Systems Constitutional: fever Cardiovascular: negative: chest pain, palpitations, orthopnea, paroxysmal nocturnal dyspnea, edema, light headedness, other Gastrointestinal: negative: Nausea, Vomiting, Abdominal Pain, Diarrhea, Constipation, Melena, Hematochezia, Other - Medications/Allergies Allergies/Adverse Reactions: Allergies Allergy/AdvReac Type Severity Reaction Status Date / Time No Known Drug Allergies Allergy Verified 04/30/18 23:59 Medications: Current Medications Acetaminophen (Tylenol) 650 mg PO Q12H PRN PRN Reason: Headache/Fever or Pain Last Admin: 06/28/18 18:38 Dose: 650 mg Calcium Carbonate (Tums) 1,000 mg PO Q4H PRN PRN Reason: Heartburn or Indigestion Famotidine (Pepcid) 20 mg PO BID [facility] Last Admin: 06/28/18 21:13 Dose: 20 mg Meropenem 1 gm/ Device 50 mls @ 100 mls/hr IVPB 0000,0800,1600 [facility] Last Admin: 06/28/18 16:07 Dose: 50 mls Sodium Chloride (Normal Saline 0.9%) 1,000 mls @ 70 mls/hr IV .[id number] [facility] Last Admin: 06/28/18 10:20 Dose: 1,000 mls Ibuprofen (Motrin) 400 mg PO Q6H PRN PRN Reason: Fever > 101 Last Admin: 06/28/18 17:10 Dose: 400 mg Ondansetron HCl (Zofran Odt) 4 mg PO Q6H PRN PRN Reason: Nausea/Vomiting Ondansetron HCl (Zofran) 4 mg IVP Q6H PRN PRN Reason: Nausea/Vomiting Saccharomyces Boulardii (Florastor) 250 mg PO DAILY [facility] Last Admin: 06/28/18 08:28 Dose: 250 mg Senna/Docusate Sodium (Senokot S) 2 tab PO BID PRN PRN Reason: Constipation Ursodiol (Actigal) 300 mg PO BID [facility] Last Admin: 06/28/18 21:13 Dose: 300 mg
[2018-06-29] MEDS: Sodium Chloride 0.9% 1,000 ML IV SCH ×2 (00:26→08:36)
[2018-06-29] MEDS: MEROPENEM 1 GM/50 ML 1 GM in Premix Bag 1 BAG IVPB SCH ×3 (00:26→14:46)
[2018-06-29 05:46] LABS: #Basophils 0.1 thou/uL (0.0-0.2); #Eosinphils 0.3 thou/uL (0.0-0.7); #Lymphocytes 1.4 thou/uL (1.20-3.40); #Monocytes 1.5 thou/uL (0.11-0.59); #Neutrophils 12.3 thou/uL (1.40-6.50); %Basophils 0.8 % (0.0-1.0); %Eosinophils 1.8 % (0.0-10.0); %Lymphocytes 8.9 % (21.0-51.0); %Monocytes 9.5 % (0.0-10.0); %Neutrophils 79.1 % (42.0-75.0); Mean Corpuscular HGB CONC 32.5 g/dL (32.0-36.0); Mean Corpuscular Hemoglobin 29.9 pg (27.0-31.0); Mean Corpuscular Volume 92.2 fL (78.0-98.0); Mean Platelet Volume 10.8 fL (7.4-10.4); Platelet Count 313 thou/uL (130-400); RBC Distribution Width 17.1 % (11.5-14.5); Red Blood Cell (RBC) Count 3.66 mill/uL (4.70-6.10); White Blood Cell (WBC) Count 15.5 thou/uL (4.8-10.8)
[2018-06-29 05:52] LABS: ALT (SGPT) 75 U/L (8-55); AST (SGOT) 74 U/L (5-34); Albumin 2.9 g/dL (3.5-5.0); Alkaline Phosphatase 1077 U/L (40-150); Anion Gap 12 mmol/L (10-20); BUN (Urea Nitrogen) 6 mg/dL (8.9-20.6); Bilirubin, Total 8.2 mg/dL (0.2-1.2); Calc. Creatinine Clearance 204 mL/min (70-130); Calcium 9.2 mg/dL (7.8-10.44); Carbon Dioxide 24 mmol/L (22-29); Chloride 97 mmol/L (98-107); Estimated GFR-MDRD Greater than 90; Globulin 4.2 g/dL (2.4-3.5); Glucose 105 mg/dL (70-105); Potassium 3.8 mmol/L (3.5-5.1); Protein, Total 7.1 g/dL (6.0-8.3); Sodium 129 mmol/L (136-145)
[2018-06-29] MEDS: Ibuprofen 200 MG TAB PO PRN (08:30)
[2018-06-29] MEDS: Ursodiol 300 MG CAP PO SCH ×2 (08:33→20:23)
[2018-06-29] MEDS: Famotidine 20 MG TAB PO SCH ×2 (08:33→20:23)
[2018-06-29] MEDS: Saccharomyces boulardii 250 MG CAP PO SCH (08:33)
[2018-06-29] MEDS: hydrOXYzine 10 MG TAB PO PRN ×2 (14:35→19:09)
--- NOTE | 2018-06-29 15:54 | PRG ---
DATE OF SERVICE: 06/29/2018 SUBJECTIVE: Mr. Bennett still has had some cough. His achiness is improved compared to admission. He has no abdominal pain, nausea or vomiting. OBJECTIVE: VITAL SIGNS: Temperature is 98.2. He is still spiking fevers at 8 this morning to 101.0, pulse 107, blood pressure 117/67. GENERAL: He is in no acute distress. He is jaundiced. LUNGS: Clear to auscultation bilaterally. HEART: Regular rate and rhythm. ABDOMEN: Soft, nontender and nondistended. Bowel sounds are present. EXTREMITIES: No lower extremity edema. LABORATORY DATA: White blood cell count today is 15.5, hemoglobin 11.0, platelets 313. Bilirubin 8. 2, alkaline phosphatase 1077, AST 74, ALT is 75, creatinine 0.65. IMPRESSION: 1. Primary sclerosing cholangitis. He presents with continued intermittent fevers. Concern is for possible infectious cholangitis. He has been on antibiotics, meropenem IV now for few days and still is having intermittent fevers. The blood cultures have been negative. 2. Adenovirus infection. He has developed cough with this. The fevers may be related to the adenov irus given that he is not responding completely to the antibiotics. 3. Throat swab was positive for Strep again. This is covered by meropenem. This is more likely col onization and ongoing acute infection. His case was discussed with Infectious Disease, Dr. Aragon. RECOMMENDATIONS: 1. We will try to obtain an ultrasound of the liver to rule out evidence of an abscess. 2. If this is negative, then we should be able to start a PICC line and discharge home with antibiot ics. 3. He has an office appointment and MRI of the liver scheduled for in [place] with Dr. Raquel Aggarwal. I would prefer that he follow through with his MRI there in [place], so he can have direct c omparison rather than scheduling MRI now to evaluate the liver here. We of course will adjust this p andrey based on his clinical course. 3. I have also put in a text to Dr. Yao and awaiting call back.
--- NOTE | 2018-06-29 17:34 | PRG ---
DATE OF SERVICE: 06/29/2018 SUBJECTIVE: Feeling better than before. Having a little bit of cough intermittently. No headaches, no abdominal pain. OBJECTIVE: VITAL SIGNS: T-max 101 just recently, pulse 107, respirations 16, O2 sat 98%. HEENT: Icterus noted. LUNGS: With symmetric air entry. HEART: S1, S2 regular rate. ABDOMEN: Soft. Not distended or tender. LABORATORY DATA: White cell count 15.5, hemoglobin 11, platelets 313 with 79% neutrophils. Sodium 1 29, creatinine 0.65, bilirubin is down to 8.2, AST 74, ALT 75, alkaline phosphatase 1077, albumin 2.7 . Adenovirus was positive as noted before. Blood cultures are negative. ASSESSMENT AND DISCUSSION: 1. Ulcerative colitis with primary sclerosing cholangitis. 2. Recrudescence of fever. 3. Positive adenovirus PCR assay. 4. Positive group A strep culture from oropharyngeal area. DISCUSSION: Differential diagnosis includes adenoviral infection versus bacterial superimposed infec tious cholangitis. Reportedly, the patient in the past has had those episodes treated with IV antimi crobial therapy with PICC line and continuation of treatment in the home setting with improvement. W e will follow the same strategy for now. It is still possible that the adenovirus is causing these s ymptoms. We will order an ultrasound of the abdomen to evaluate for any fluid collection. Continue meropenem. The group A strep is more likely to represent an innocent bystander and not a true pathog en related to current symptomatology.
--- NOTE | 2018-06-29 17:39 | ULT ---
RIGHT UPPER QUADRANT ABDOMINAL ULTRASOUND: HISTORY: Primary sclerosing cholangitis with right upper quadrant abdominal pain. Fever. Evaluate for liver abscess. COMPARISON: 05/01/2018 TECHNIQUE: Multiplanar herbert-scale and color Doppler images were obtained in a right upper quadrant abdominal ult rasound. FINDINGS: The liver is enlarged. The liver is normal in echogenicity without focal lesions or intrahepatic leo arley dilatation. No focal liver fluid collection is seen. The gallbladder wall shows multiple areas of comet-tail artifact, consistent with cholesterosis of th e gallbladder wall. No shadowing stones are seen in the gallbladder. There is gallbladder wall thic kening, but the gallbladder is contracted, and this may be secondary to the contracted state. The pancreas is not well seen. The right kidney is normal in echogenicity without hydronephrosis or calculus and measures 12.4 cm in length. IMPRESSION: 1. Gallbladder cholesterolosis. 2. Hepatomegaly. POS: TPC
[2018-06-29] MEDS: Acetaminophen 325 MG TAB PO PRN (19:07)
[2018-06-29 20:18] VITALS: BP 110/68
[2018-06-29 21:16] VITALS: TEMP 98.8
--- NOTE | 2018-06-29 22:26 | DIS ---
DATE OF DISCHARGE: 06/29/2018 DISCHARGE DISPOSITION: To [facility] in [place]. BRIEF HOSPITAL COURSE: Patient is a 22-year-old male with primary sclerosing cholangitis with ulcera tive colitis who presented to the hospital with fever. He was admitted to the medical floor with a d iagnosis of suspected cholangitis. Due to some erythema over posterior pharynx, he had respiratory v iral panel that was positive for adenovirus. Rapid Strep screen was negative; however Streptococcus culture of the throat was positive. His blood cultures remain negative. He was started on meropenem on admission. Despite this, he intermittently had fevers up to 103.1. He was evaluated by Gastroen terology, Dr. Michael Hanson as well as Infectious Disease, Dr. Aragon. Patient will be transferred to [facility] for higher level of care. An abdominal ultrasound was done earlier today that was essenti ally negative except for gallbladder cholesterolosis. Case was discussed with the physician at [facility]. The [facility] in a.m. His WBC on the day of discharge is 15.5 wi th 79.1 neutrophil. His LFTs were chronically elevated with total bilirubin 8.2, AST 74, ALT 75 with alkaline phosphorus 1.077 on the day of discharge. FINAL DIAGNOSES: 1. Sepsis secondary to cholangitis with adenovirus infection. 2. Throat culture positive for Streptococcus. 3. Primary sclerosing cholangitis with liver cirrhosis and ulcerative colitis. 4. Chronically elevated liver function tests. 5. Chronic anemia. 6. Electrolyte abnormalities including hyponatremia, hypokalemia, and hypomagnesemia. 7. Mild protein calorie malnutrition. Plan of care was discussed with the patient in detail. He stated understanding.
== END 2018-06-29 21:57 | disposition short-term general hospital (02) | DRG 872 ==
LOC: ERS 21:58 → 3SE 06-26 00:27 → T4-A 06-27 09:15
PROVIDERS: ADMIT Internal Medicine; ATTEND Internal Medicine
DX: A41.9 Sepsis, unspecified organism (principal); K83.09 Other cholangitis; K51.90 Ulcerative colitis, unspecified, without complications; E87.1 Hypo-osmolality and hyponatremia; E44.1 Mild protein-calorie malnutrition; K74.60 Unspecified cirrhosis of liver; D64.9 Anemia, unspecified; Z79.899 Other long term (current) drug therapy; J02.0 Streptococcal pharyngitis; E87.6 Hypokalemia; E83.42 Hypomagnesemia; K72.90 Hepatic failure, unspecified without coma; Z76.82 Awaiting organ transplant status; Z68.23 Body mass index [BMI] 23.0-23.9, adult
CPT/HCPCS: 36415; 71045; 76705; 80053; 81003; 82140; 83605; 83690; 83735; 85025; 85610; 85730; 87040; 87081; 87430; 87633; 87798; 87804; 90471; 90686; 90732; 96361; 96365; 96367; G0008; G0009; J2185; J2543; J3370; J7050

== ENCOUNTER 2019-09-17 18:35 | Emergency (ER) | payer OTHER ==
[2019-09-17 19:22] LABS: #Basophils 0.1 thou/uL (0.0-0.2); #Eosinphils 0.1 thou/uL (0.0-0.7); #Lymphocytes 2.6 thou/uL (1.20-3.40); #Monocytes 0.8 thou/uL (0.11-0.59); #Neutrophils 4.5 thou/uL (1.40-6.50); %Basophils 1.1 % (0.0-1.0); %Eosinophils 1.4 % (0.0-10.0); %Lymphocytes 31.6 % (21.0-51.0); %Monocytes 10.2 % (0.0-10.0); %Neutrophils 55.7 % (42.0-75.0); Hemoglobin 12.8 g/dL (14.0-18.0); Mean Corpuscular HGB CONC 33.6 g/dL (32.0-36.0); Mean Corpuscular Hemoglobin 29.5 pg (27.0-31.0); Mean Corpuscular Volume 87.9 fL (78.0-98.0); Mean Platelet Volume 7.9 fL (7.4-10.4); Platelet Count 192 thou/uL (130-400); RBC Distribution Width 12.9 % (11.5-14.5); Red Blood Cell (RBC) Count 4.34 mill/uL (4.70-6.10); White Blood Cell (WBC) Count 8.1 thou/uL (4.8-10.8)
--- NOTE | 2019-09-17 19:36 | RAD ---
EXAM: CHEST ONE VIEW PORTABLE: 09/17/19 HISTORY: Cough, history of liver transplant. Fever. COMPARISON: 06/25/18. FINDINGS: Monitor leads overlie the chest. Heart size is normal. The lungs are clear. IMPRESSION: No acute intrathoracic disease. POS: RRE
[2019-09-17 19:45] LABS: ALT (SGPT) 25 U/L (8-55); AST (SGOT) 24 U/L (5-34); Albumin 4.4 g/dL (3.5-5.0); Alkaline Phosphatase 163 U/L (40-110); Anion Gap 9 mmol/L (10-20); BUN (Urea Nitrogen) 11 mg/dL (8.9-20.6); Bilirubin, Total 0.8 mg/dL (0.2-1.2); Calc. Creatinine Clearance 0 mL/min (70-130); Calcium 8.9 mg/dL (7.8-10.44); Carbon Dioxide 27 mmol/L (22-29); Chloride 105 mmol/L (98-107); Estimated GFR-MDRD 86; Globulin 2.7 g/dL (2.4-3.5); Glucose 108 mg/dL (70-105); Lipase 9 U/L (8-78); Potassium 4.4 mmol/L (3.5-5.1); Protein, Total 7.1 g/dL (6.0-8.3); Sodium 137 mmol/L (136-145)
[2019-09-17 22:37] LABS: Bilirubin Negative (Negative); Blood, Urine Negative (Negative); Clarity Clear (Clear); Glucose, Urine (Dipstick) Normal (Negative); Leukocyte Negative Leu/uL (Negative); Nitrite Negative (Negative); Protein, Urine (Dipstick) Negative (Neg-Trace); Urobilinogen Normal mg/dL (Less than 2)
== END 2019-09-17 22:53 | disposition home or self-care (01) ==
LOC: ERS 18:35
DX: B34.9 Viral infection, unspecified (principal); Z79.899 Other long term (current) drug therapy
CPT/HCPCS: 36415; 71045; 80053; 81003; 83690; 85025; 87804; 96360; 96361